=== PATIENT | female | born 1975 | race Hispanic/Latino ===

== ENCOUNTER 2016-08-10 15:04 | Emergency (ER) | payer MEDICAID ==
[2016-08-10 15:05] VITALS: BMI 39.4
[2016-08-10 15:18] VITALS: BP 113/74; PULSE 79; RESP 18; TEMP 97.8; O2SAT 100
--- NOTE | 2016-08-10 16:15 | C.PDOC ---
History Of Present Illness 41 y/o female with Hx of chronic back pain presents to ED with complaints of lower back pain starting after she lifted luggage. Patient reports symptoms similar to previous back pain. Patient denies change in sensation, incontinence , direct trauma, urinary frequency, dysuria or any other complaints at this time. Time Seen by Provider: 08/10/16 15:51 Chief Complaint (Nursing): Back Pain History Per: Patient History/Exam Limitations: no limitations Onset/Duration Of Symptoms: Hrs Current Symptoms Are (Timing): Still Present Quality Of Discomfort: "Pain" Past Medical History Reviewed: Historical Data, Nursing Documentation, Vital Signs Vital Signs: Last Vital Signs Temp 97.8 F 08/10/16 15:14 Pulse 79 08/10/16 15:14 Resp 18 08/10/16 15:14 BP 113/74 08/10/16 15:14 Pulse Ox 100 08/10/16 17:43 - Medical History PMH: Arthritis, Asthma, Back Problems (chronic lower back pain ), COPD, Diabetes , HTN, Hyperthyroidism, Hypothyroidism, Kidney Stones, Migraine, Chronic Kidney Disease, Rheumatoid Arthritis, Seizures, TIA (2011), Chronic Pain (Arthritis) Family History: States: Unknown Family Hx - Social History Hx Tobacco Use: Yes Hx Alcohol Use: No Hx Substance Use: No - Immunization History Hx Tetanus Toxoid Vaccination: No Hx Influenza Vaccination: Yes (12/2014) Hx Pneumococcal Vaccination: Yes (12/2014) Review Of Systems Except As Marked, All Systems Reviewed And Found Negative. Constitutional: Negative for: Fever Genitourinary: Negative for: Dysuria, Frequency Musculoskeletal: Positive for: Back Pain Skin: Negative for: Rash Physical Exam - Physical Exam Appears: Non-toxic, No Acute Distress Skin: Normal Color, Warm Head: Atraumatic, Normacephalic Eye(s): bilateral: Normal Inspection, EOMI Nose: Normal Oral Mucosa: Moist Neck: Normal ROM, Supple Chest: Symmetrical Cardiovascular: Rhythm Regular, No Murmur Respiratory: Normal Breath Sounds, No Rales, No Rhonchi, No Wheezing Gastrointestinal/Abdominal: Soft, No Tenderness, No Guarding, No Rebound Back: No CVA Tenderness, No Vertebral Tenderness, Other (Right paralumbar tenderness) Extremity: Normal ROM Extremity: Bilateral: Atraumatic Neurological/Psych: Oriented x3, Normal Speech, Normal Motor, Normal Sensation ( (-) saddle anesthsia) Gait: Steady ED Course And Treatment O2 Sat by Pulse Oximetry: 100 (RA) Pulse Ox Interpretation: Normal Progress Note: Patient was given Tramadol and re-evaluated. Patient states she cannot see PMD until next week and requests refills on current medication. MEDICAL UNIT SECRETARY evaluated no prescriptions since 03/2016. On reassessment, patient resting comfortably, no longer having back pain, no fever, no bony tenderness, no numbness, no weakness, no abdominal pain. Patient is ambulatory in the emergency department with no discomfort. Patient was instructed to follow up with physician/clinic in 1-2 days for further evaluation or return to ED if symptoms persist or worsen. Reevaluation Time: 05:00 (Patient feeling better) Reassessment Condition: Improved Disposition - Disposition Disposition: HOME/ ROUTINE Disposition Time: 16:18 Condition: STABLE Additional Instructions: Rest and ice the area. Follow up with primary medical doctor in 1-3 days without fail for further evaluation. Take medications as prescribed. Return to the emergency department at any time if symptoms persist or worsen. Prescriptions: Enalapril Maleate [Vasotec] 5 mg PO DAILY #7 tab Gabapentin [Neurontin] 300 mg PO TID #21 cap MetFORMIN [glucOPHAGE] 1,000 mg PO BID #14 tab Metoprolol Succinate [Toprol XL] 25 mg PO BID #14 tab traMADol [Ultram] 50 mg PO Q8 #20 tab Instructions: Chronic Back Pain (ED) - Clinical Impression Clinical Impression: Low back strain - PA / SENIOR PRINCIPAL / Resident Statement MD/DO has reviewed & agrees with the documentation as recorded. - Scribe Statement The provider has reviewed the documentation as recorded by the Miki Dean All medical record entries made by the Miki were at my direction and personally dictated by me. I have reviewed the chart and agree that the record accurately reflects my personal performance of the history, physical exam, medical decision making, and the department course for this patient. I have also personally directed, reviewed, and agree with the discharge instructions and disposition.
== END 2016-08-10 16:44 | disposition home or self-care (01) ==
LOC: C.ER 15:04
DX: S39.012A Strain of muscle, fascia and tendon of lower back, initial encounter (principal); X50.0XXA Overexertion from strenuous movement or load, initial encounter; Y93.89 Activity, other specified; Y92.89 Other specified places as the place of occurrence of the external cause

== ENCOUNTER 2016-08-18 06:37 | Emergency (ER) | payer MEDICAID ==
[2016-08-18 06:38] VITALS: BMI 39.4
--- NOTE | 2016-08-18 07:22 | C.PDOC ---
History Of Present Illness 41F c/o pain in lower front tooth since it "broke off" yesterday. she also c/o pain over her whole body which she attributes to "arthritis flare" which she says she gets on a monthly basis for the last 5 years. she said she has taken only motrin at home for pain. Time Seen by Provider: 08/18/16 07:13 Chief Complaint (Nursing): Pain, Chronic Past Medical History Vital Signs: Last Vital Signs Temp 97.8 F 08/18/16 06:52 Pulse 78 08/18/16 06:52 Resp 20 08/18/16 06:52 BP 113/83 08/18/16 06:52 Pulse Ox 100 08/18/16 07:22 - Medical History PMH: Arthritis, Asthma, Back Problems (chronic lower back pain ), COPD, Diabetes , HTN, Hyperthyroidism, Hypothyroidism, Kidney Stones, Migraine, Chronic Kidney Disease, Rheumatoid Arthritis, Seizures, TIA (2010), Chronic Pain (Arthritis) Family History: States: Other Other Family History: nc - Social History Hx Tobacco Use: Yes Hx Alcohol Use: No Hx Substance Use: No - Immunization History Hx Tetanus Toxoid Vaccination: No Hx Influenza Vaccination: Yes (12/2014) Hx Pneumococcal Vaccination: Yes (12/2014) Review Of Systems Constitutional: Negative for: Fever, Chills Cardiovascular: Negative for: Chest Pain Respiratory: Negative for: Cough, Shortness of Breath Gastrointestinal: Negative for: Vomiting, Abdominal Pain Neurological: Negative for: Weakness, Numbness, Headache Physical Exam - Physical Exam Appears: Well, Non-toxic, No Acute Distress Skin: Warm, Dry Head: Atraumatic Eye(s): bilateral: PERRL Oral Mucosa: Moist Tongue: No Swelling, No Lesions Lips: No Swelling, No Lesions Teeth: Caries, Other (poor dentition) Gingiva: No Erythema, No Ulceration, No Swelling, No Bleeding, No Abscess Throat: No Erythema, No Exudate, No Drooling, Other (no trismus, normal phonation, handling secretions well, uvula midline, no subment/subling induration) Neck: Normal ROM, Supple Cardiovascular: Rhythm Regular Respiratory: No Decreased Breath Sounds, No Accessory Muscle Use Neurological/Psych: Oriented x3, Normal Cranial Nerves, Normal Motor, Normal Sensation, Other (no focal deficits) ED Course And Treatment O2 Sat by Pulse Oximetry: 100 Disposition - Disposition Referrals: [facility] [Outside] Disposition: HOME/ ROUTINE Disposition Time: 07:44 Condition: STABLE Additional Instructions: Please follow up with a primary doctor and also with a dentist. Return to the ER for any worsening symptoms, fever, swelling in the mouth, difficulty opening your mouth or swallowing, or for any other concerns. Prescriptions: Clindamycin [Cleocin] 150 mg PO QID #40 cap Naproxen [Naprosyn] 500 mg PO Q12H PRN #10 tablet PRN Reason: Pain, Moderate (4-7) Instructions: Toothache (ED) Forms: General Discharge Instructions - Clinical Impression Clinical Impression: Toothache, Chronic pain
[2016-08-18 08:23] VITALS: BP 108/69; PULSE 69; RESP 17; TEMP 97.9; O2SAT 98
== END 2016-08-18 08:23 | disposition home or self-care (01) ==
LOC: C.ER 06:37
DX: K08.89 Other specified disorders of teeth and supporting structures (principal); G89.29 Other chronic pain
CPT/HCPCS: 96372; 99285; J1885

== ENCOUNTER 2016-08-23 20:39 | Emergency (ER) | payer MEDICAID ==
[2016-08-23 20:39] VITALS: BMI 39.4
[2016-08-23 20:52] VITALS: RESP 18; TEMP 98.1; O2SAT 98
--- NOTE | 2016-08-23 22:09 | C.PDOC ---
History Of Present Illness 41 y/o female patient presents to the ED for evaluation of bed bug bites which she sustained to her upper and lower back last night. Patient states she stayed at a hotel where she visualized bed bugs crawling on the mattress. She notes generalized itching and denies fever, chills, shortness of breath, difficultly breathing, lip/tongue swelling. Time Seen by Provider: 08/23/16 21:05 Chief Complaint (Nursing): Abnormal Skin Integrity History Per: Patient History/Exam Limitations: no limitations Onset/Duration Of Symptoms: Hrs Current Symptoms Are (Timing): Still Present Location Of Injury: Posterior: Back (upper and lower ) Quality Of Symptoms: Itching Additional History Per: Patient Past Medical History Reviewed: Historical Data, Nursing Documentation, Vital Signs Vital Signs: Last Vital Signs Temp 98.1 F 08/23/16 20:48 Pulse 82 08/23/16 22:17 Resp 18 08/23/16 22:17 BP 122/82 08/23/16 22:17 Pulse Ox 98 08/23/16 23:55 - Medical History PMH: Arthritis, Asthma, Back Problems (chronic lower back pain ), COPD, Diabetes , HTN, Hyperthyroidism, Hypothyroidism, Kidney Stones, Migraine, Chronic Kidney Disease, Rheumatoid Arthritis, Seizures, TIA (2011), Chronic Pain (Arthritis) Surgical History: No Surg Hx Family History: States: Unknown Family Hx - Social History Hx Tobacco Use: Yes Hx Alcohol Use: No Hx Substance Use: No - Immunization History Hx Tetanus Toxoid Vaccination: No Hx Influenza Vaccination: Yes (12/2014) Hx Pneumococcal Vaccination: Yes (12/2014) Review Of Systems Constitutional: Negative for: Fever, Chills ENT: Negative for: Mouth Swelling Respiratory: Negative for: Cough, Shortness of Breath, Wheezing Skin: Positive for: Other (+bed bug bites to upper and lower back with generalized itching. ) Physical Exam - Physical Exam Appears: Non-toxic, No Acute Distress Skin: Other (+scattered patchy papules to left upper back and lateral aspect of left lower back with diffuse erythema ) Head: Atraumatic Eye(s): bilateral: Normal Inspection Nose: Normal Oral Mucosa: Moist Tongue: Normal Appearing, No Swelling Lips: Normal Appearing, No Swelling Throat: Normal Neck: Supple Chest: Symmetrical, No Deformity Cardiovascular: Rhythm Regular, No Murmur Respiratory: Normal Breath Sounds, No Rales, No Rhonchi, No Wheezing Extremity: Normal ROM Neurological/Psych: Normal Speech, Normal Cognition Gait: Steady ED Course And Treatment O2 Sat by Pulse Oximetry: 98 (on RA) Pulse Ox Interpretation: Normal Progress Note: Patient received Benadryl PO. On reassessment, patient is resting comfortably, showing no signs of distress, and reports an improvement in her symptoms. Patient is stable for discharge and is advised to follow up with her PMD within 1-2 days for further evaluation or return to the ED if symptoms worsen. Reassessment Condition: Improved Disposition Counseled Patient/Family Regarding: Diagnosis, Need For Followup, Rx Given - Disposition Referrals: Alexx Coyle MD [Staff Provider] - Disposition: HOME/ ROUTINE Disposition Time: 22:05 Condition: STABLE Additional Instructions: Please follow up with PMD Use cream as directed Return to ER if worse Prescriptions: Loratadine [Claritin] 10 mg PO DAILY #20 tab Permethrin 5% [Permethrin] 5 % TP ONCE #60 g Instructions: Bed Bugs (ED) - Clinical Impression Clinical Impression: Bed bug bite - PA / FIRE MANAGER / Resident Statement MD/DO has reviewed & agrees with the documentation as recorded. - Scribe Statement The provider has reviewed the documentation as recorded by the Scribe (Sarah Garrett) All medical record entries made by the Scribe were at my direction and personally dictated by me. I have reviewed the chart and agree that the record accurately reflects my personal performance of the history, physical exam, medical decision making, and the department course for this patient. I have also personally directed, reviewed, and agree with the discharge instructions and disposition.
[2016-08-23 22:18] VITALS: BP 122/82; PULSE 82
== END 2016-08-23 22:18 | disposition home or self-care (01) ==
LOC: C.ER 20:39
DX: S30.860A Insect bite (nonvenomous) of lower back and pelvis, initial encounter (principal); S20.469A Insect bite (nonvenomous) of unspecified back wall of thorax, initial encounter; W57.XXXA Bitten or stung by nonvenomous insect and other nonvenomous arthropods, initial encounter; Y92.59 Other trade areas as the place of occurrence of the external cause

== ENCOUNTER 2016-08-25 16:29 | Emergency (ER) | payer MEDICAID ==
[2016-08-25 16:30] VITALS: BMI 39.4
[2016-08-25 16:47] VITALS: BP 114/76; PULSE 97; RESP 18; TEMP 97.9; O2SAT 100
--- NOTE | 2016-08-25 17:20 | C.PDOC ---
History Of Present Illness 41 year old female who presents to the ER with a complaint of a sharp right shoulder pain radiating down to her right arm that is worse with movement. Patient states the symptoms began when she woke up this morning; denies weakness , numbness, or recent injury. Time Seen by Provider: 08/25/16 16:52 Chief Complaint (Nursing): Upper Extremity Problem/Injury History Per: Patient History/Exam Limitations: no limitations Onset/Duration Of Symptoms: Hrs Current Symptoms Are (Timing): Still Present Quality: Sharp Exacerbating Factor(s): Movement Recent travel outside of the [place]: No Past Medical History Reviewed: Historical Data, Nursing Documentation, Vital Signs Vital Signs: Last Vital Signs Temp 97.9 F 08/25/16 16:45 Pulse 97 H 08/25/16 16:45 Resp 18 08/25/16 16:45 BP 114/76 08/25/16 16:45 Pulse Ox 100 08/25/16 21:02 - Medical History PMH: Arthritis, Asthma, Back Problems (chronic lower back pain ), COPD, Diabetes , HTN, Hyperthyroidism, Hypothyroidism, Kidney Stones, Migraine, Chronic Kidney Disease, Rheumatoid Arthritis, Seizures, TIA (2010), Chronic Pain (Arthritis) Surgical History: No Surg Hx Family History: States: Unknown Family Hx - Social History Hx Tobacco Use: Yes Hx Alcohol Use: No Hx Substance Use: No - Immunization History Hx Tetanus Toxoid Vaccination: No Hx Influenza Vaccination: Yes (12/2014) Hx Pneumococcal Vaccination: Yes (12/2014) Review Of Systems Musculoskeletal: Positive for: Shoulder Pain (Right), Arm Pain (Right, radiating from shoulder) Neurological: Negative for: Weakness, Numbness Physical Exam - Physical Exam Appears: Non-toxic Skin: Normal Color, Warm, Dry, No Rash Head: Atraumatic, Normacephalic Eye(s): bilateral: Normal Inspection Oral Mucosa: Moist Throat: No Erythema, No Exudate Neck: Normal ROM, Other ((+) muscle spasm to cervical region) Cardiovascular: Rhythm Regular, No Friction Rub, No Murmur Respiratory: Normal Breath Sounds, No Rales, No Rhonchi, No Wheezing Gastrointestinal/Abdominal: Soft, No Tenderness Back: No CVA Tenderness, No Vertebral Tenderness, Muscle Spasm (To right parathoracic region), No Paraspinal Tenderness Extremity: Normal ROM (x4), No Deformity, No Swelling Pulses: Left Radial: Normal, Right Radial: Normal Neurological/Psych: Oriented x3, Normal Speech, Normal Cognition, Normal Motor Gait: Steady ED Course And Treatment O2 Sat by Pulse Oximetry: 100 (Room air) Pulse Ox Interpretation: Normal Medical Decision Making Medical Decision Making: Decadron, valium, and percocet administered. On reevaluation, patient feels better and is no longer in pain; will discharge home and advised to return to ER if pain returns. Disposition - Disposition Referrals: Alexx Coyle MD [Staff Provider] - Disposition: HOME/ ROUTINE Disposition Time: 17:58 Condition: GOOD Additional Instructions: Follow up with the medical doctor within 1-2 days, Return if worsened. Prescriptions: Diazepam [Valium] 2 mg PO TID #21 tab Ibuprofen [Motrin] 600 mg PO TID #21 tab traMADol/Acetaminophen [Ultracet 325 MG-37.5 MG] 1 tab PO Q8 PRN #15 tab PRN Reason: Pain Instructions: Muscle Spasm (ED) - Clinical Impression Clinical Impression: Muscle strain, Muscle spasm - Scribe Statement The provider has reviewed the documentation as recorded by the Scribkallie Dickson All medical record entries made by the Scribe were at my direction and personally dictated by me. I have reviewed the chart and agree that the record accurately reflects my personal performance of the history, physical exam, medical decision making, and the department course for this patient. I have also personally directed, reviewed, and agree with the discharge instructions and disposition.
[2016-08-25] MEDS ORDERED: Dexamethasone 4 mg/1 ml IM STA (17:24)
[2016-08-25] MEDS ORDERED: Oxycodone/Acetaminophen 5/325 mg Tab PO STA (17:25)
[2016-08-25] MEDS ORDERED: Dexamethasone 4 mg/1 ml ONE (17:31)
[2016-08-25] MEDS ORDERED: Oxycodone/Acetaminophen 5/325 mg Tab ONE (17:31)
== END 2016-08-25 18:10 | disposition home or self-care (01) ==
LOC: C.ER 16:29
DX: S46.911A Strain of unspecified muscle, fascia and tendon at shoulder and upper arm level, right arm, initial encounter (principal); M62.838 Other muscle spasm; X58.XXXA Exposure to other specified factors, initial encounter; Y92.009 Unspecified place in unspecified non-institutional (private) residence as the place of occurrence of the external cause
CPT/HCPCS: 96372; 99284; J1100

== ENCOUNTER 2016-09-02 13:49 | Emergency (ER) | payer MEDICAID ==
[2016-09-02 14:28] VITALS: BMI 38.8
[2016-09-02 14:32] VITALS: RESP 18; O2SAT 97
--- NOTE | 2016-09-02 15:40 | C.PDOC ---
History Of Present Illness 41 y/o female presents to the ED with complaints of right trapezius pain radiating to right anterior chest wall x 1 week. Pain is worse with movement. Pt was seen in ED 08/25 for same, finished taking pain medications and still has pain. Denies fever, chills, SOB, cough or any other complaints. Time Seen by Provider: 09/02/16 14:27 Chief Complaint (Nursing): Chest Pain History Per: Patient History/Exam Limitations: no limitations Onset/Duration Of Symptoms: Days Current Symptoms Are (Timing): Still Present Severity: Moderate Quality: "Pain" Modifying Factors: None Recent travel outside of the [place]: No Past Medical History Reviewed: Historical Data, Nursing Documentation, Vital Signs Vital Signs: Last Vital Signs Temp 97.6 F 09/02/16 17:40 Pulse 78 09/02/16 17:40 Resp 18 09/02/16 17:40 BP 110/74 09/02/16 17:40 Pulse Ox 97 09/04/16 07:24 - Medical History PMH: Arthritis, Asthma, Back Problems (chronic lower back pain ), COPD, Diabetes , HTN, Hypercholesterolemia, Hyperthyroidism, Hypothyroidism, Kidney Stones, Migraine, Chronic Kidney Disease, Rheumatoid Arthritis, Seizures, TIA (2010), Chronic Pain (Arthritis) Family History: States: Unknown Family Hx - Social History Hx Tobacco Use: Yes Hx Alcohol Use: No Hx Substance Use: No - Immunization History Hx Tetanus Toxoid Vaccination: No Hx Influenza Vaccination: Yes (12/2014) Hx Pneumococcal Vaccination: Yes (12/2014) Review Of Systems Constitutional: Negative for: Fever, Chills Cardiovascular: Negative for: Chest Pain Respiratory: Negative for: Cough, Shortness of Breath Musculoskeletal: Positive for: Other (right trapezius pain radiating to right anterior chest wall) Physical Exam - Physical Exam Appears: Non-toxic, No Acute Distress Skin: Warm, Dry, No Rash Head: Atraumatic, Normacephalic Neck: Normal, Normal ROM, No Midline Cervical Tenderness, No Paracervical Tenderness, Supple Chest: Symmetrical, Tenderness (mild right chest wall tenderness, +right trapezius tenderness) Cardiovascular: Rhythm Regular, No Murmur Respiratory: Normal Breath Sounds, No Rales, No Rhonchi, No Wheezing Back: Normal Inspection Extremity: Normal ROM, No Tenderness (no right arm tenderness), Capillary Refill (<2 seconds), No Deformity, No Swelling Pulses: Right Radial: Normal Neurological/Psych: Oriented x3, Normal Speech, Normal Cognition, Normal Motor, Normal Sensation ED Course And Treatment O2 Sat by Pulse Oximetry: 97 (room air) Pulse Ox Interpretation: Normal Medical Decision Making Medical Decision Making: pt feeling better after tylenol and flexeril. cxr neg. pt requesting refills on regular medications. will give 2 weeks. pt advised to go to medical clinic to make soonest appt. Noted that pt received refills of medications on ed visit 08/10. pt sts she ran out of meds and unable to see her pMD Dr Coyle until Sep. pt advised to got to clinic tomorrow. Disposition Counseled Patient/Family Regarding: Studies Performed, Diagnosis, Need For Followup, Rx Given - Disposition Referrals: [facility] [Outside] Disposition: HOME/ ROUTINE Disposition Time: 17:23 Condition: IMPROVED Additional Instructions: FOllow up in medical clinic as soon as possible for check u and medication refills. Take muscle relaxant as prescribed. Makes you sleepy. Return to ER for any worse symptoms. Prescriptions: Cyclobenzaprine [Cyclobenzaprine HCl] 10 mg PO Q8 #9 tab Gabapentin 300 mg PO TID #42 capsule Levothyroxine [Synthroid] 25 mcg PO DAILY #14 tab Levothyroxine [Synthroid] 200 mcg PO DAILY #14 tab MetFORMIN [glucoPHAGE] 1,000 mg PO BID #28 tab Instructions: Muscle Spasm (ED) Forms: General Discharge Instructions - Clinical Impression Clinical Impression: Muscle spasm of right shoulder, Encounter for medication refill - PA / SHIFT SUPERVISOR MELTING / Resident Statement MD/DO has reviewed & agrees with the documentation as recorded. - Scribe Statement The provider has reviewed the documentation as recorded by the Miki Sanchez All medical record entries made by the Miki were at my direction and personally dictated by me. I have reviewed the chart and agree that the record accurately reflects my personal performance of the history, physical exam, medical decision making, and the department course for this patient. I have also personally directed, reviewed, and agree with the discharge instructions and disposition.
--- NOTE | 2016-09-02 16:28 | RAD ---
HISTORY: right cp COMPARISON: 10/07/2014 comparison chest radiograph TECHNIQUE: Chest PA and lateral FINDINGS: LUNGS: No acute infiltrate or pleural effusion is appreciated grossly. Linear atelectasis or fibrosis seen in the interval at the inferior left lung zone laterally. PLEURA: No significant pleural effusion identified. No pneumothorax apparent. CARDIOVASCULAR: Normal. OSSEOUS STRUCTURES: No significant abnormalities. VISUALIZED UPPER ABDOMEN: Normal. OTHER FINDINGS: None. IMPRESSION: Limited linear atelectasis or fibrosis in the left base laterally. No acute infiltrate or pleural effusion. No cardiomegaly. .
[2016-09-02 17:41] VITALS: BP 110/74; PULSE 78; TEMP 97.6
--- NOTE | 2016-09-04 14:23 | CARD ---
APPROVED REPORT EKG Measurement Heart [id number] <Conclusion> Normal sinus rhythm Normal ECG
== END 2016-09-02 18:01 | disposition home or self-care (01) ==
LOC: C.ER 13:49
DX: M62.838 Other muscle spasm (principal); Z76.0 Encounter for issue of repeat prescription

== ENCOUNTER 2016-11-05 15:14 | Emergency (ER) | payer MEDICAID ==
[2016-11-05 15:15] VITALS: BMI 38.8
[2016-11-05 15:28] VITALS: RESP 18; O2SAT 98
[2016-11-05] MEDS ORDERED: Sodium Chloride 0.9% 1,000 ML IV ONE (16:04)
[2016-11-05] MEDS ORDERED: Sodium Chloride 0.9% 1,000 ML ONE (16:22)
[2016-11-05 16:58] LABS: RBC URINE 6 /hpf (0-3); URINE BACTERIA MOD (<OCC); URINE BILIRUBIN NEGATIVE (NEGATIVE); URINE COLOR Yellow (YELLOW); URINE GLUCOSE (UA) NORMAL (Normal); URINE KETONE NEGATIVE (NEGATIVE); URINE LEUKOCYTE ESTERASE 2+ Leu/uL (Negative); URINE PROTEIN NEGATIVE (NEGATIVE); URINE UROBILINOGEN NORMAL mg/dL (0.2-1.0); WBC URINE 25 /hpf (0-5)
[2016-11-05 17:00] LABS: URINE BLOOD 1+ (NEGATIVE)
[2016-11-05 17:01] LABS: CHLORIDE 105 mmol/L (98-107); POTASSIUM 3.8 mmol/L (3.6-5.2); SODIUM 140 mmol/L (132-148)
[2016-11-05 17:03] LABS: ALB/GLOB RATIO 0.9 (1.0-2.1); ALKALINE PHOSPHATASE 47 U/L (38-126); AST/SGOT 64 U/L (14-36); BILIRUBIN,TOTAL 0.6 mg/dL (0.2-1.3); BLOOD UREA NITROGEN 13 mg/dL (7-17); CARBON DIOXIDE 24 mmol/L (22-30); GFR AFRICAN-AMERICAN > 60; TOTAL PROTEIN 7.6 g/dL (6.3-8.3)
[2016-11-05 17:04] LABS: ALT/SGPT 98 U/L (9-52); GLUCOSE,RANDOM 86 mg/dL (65-105); MAGNESIUM 1.7 mg/dL (1.6-2.3)
[2016-11-05 17:17] LABS: BASO # 0.1 K/uL (0.0-0.2); BASO % 0.7 % (0.0-2.0); EOS # 0.2 K/uL (0.0-0.7); LYMPH # 2.9 K/uL (1.0-4.3); LYMPH % 28.4 % (20.0-40.0); MEAN CELL VOLUME 89.3 fL (81.0-99.0); MEAN CORPUSCULAR HEMOGLOBIN 30.9 pg (27.0-31.0); MEAN CORPUSCULAR HGB CONC 34.6 g/dL (33.0-37.0); MEAN PLATELET VOLUME 8.5 fL (7.2-11.7); MONO # 0.7 K/uL (0.0-0.8); MONO % 6.9 % (0.0-10.0); RED CELL DISTRIBUTION WIDTH 14.9 % (11.5-14.5); WHITE BLOOD COUNT 10.1 K/uL (4.8-10.8)
--- NOTE | 2016-11-05 17:40 | RAD ---
HISTORY: Cough COMPARISON: No prior. TECHNIQUE: Chest PA and lateral FINDINGS: LUNGS: Mild venous congestion. PLEURA: No significant pleural effusion identified. No pneumothorax apparent. CARDIOVASCULAR: Normal. OSSEOUS STRUCTURES: No significant abnormalities. VISUALIZED UPPER ABDOMEN: Normal. OTHER FINDINGS: None. IMPRESSION: Mild venous congestion.
--- NOTE | 2016-11-05 17:51 | C.PDOC ---
Time Seen by Provider: 11/05/16 15:37 Chief Complaint (Nursing): Flu-like Symptoms History Per: Patient Onset/Duration Of Symptoms: Days (1) Current Symptoms Are (Timing): Still Present Associated Symptoms: Sore Throat, Cough, Myalgias, Nausea, Vomiting, Diarrhea Ear Symptoms: Left: Ear Pain Severity: Moderate Recent travel outside of the [place]: No Additional History Per: Prior Records Past Medical History Reviewed: Historical Data, Nursing Documentation, Vital Signs Vital Signs: Last Vital Signs Temp 97.0 F L 11/05/16 15:23 Pulse 88 11/05/16 15:23 Resp 18 11/05/16 15:23 BP 131/90 11/05/16 15:23 Pulse Ox 98 11/05/16 17:52 - Medical History PMH: Arthritis (Rheumatoid), Asthma, Back Problems (chronic lower back pain ), COPD, Diabetes, HTN, Hypercholesterolemia, Hyperthyroidism, Hypothyroidism, Kidney Stones, Migraine, Chronic Kidney Disease, Rheumatoid Arthritis, Seizures , TIA (2010), Chronic Pain (Arthritis) Family History: States: Unknown Family Hx - Social History Hx Tobacco Use: Yes Hx Alcohol Use: No Hx Substance Use: No - Immunization History Hx Tetanus Toxoid Vaccination: No Hx Influenza Vaccination: Yes Hx Pneumococcal Vaccination: Yes (12/2014) Review Of Systems Except As Marked, All Systems Reviewed And Found Negative. Constitutional: Positive for: Fever (subjective), Malaise ENT: Positive for: Ear Pain, Other (Hoarse voice). Negative for: Ear Discharge Cardiovascular: Negative for: Chest Pain Respiratory: Positive for: Cough. Negative for: Shortness of Breath, Hemoptysis , Sputum Gastrointestinal: Positive for: Nausea, Vomiting, Diarrhea. Negative for: Abdominal Pain Genitourinary: Positive for: Dysuria Musculoskeletal: Positive for: Other (Arthralgias). Negative for: Neck Pain Skin: Negative for: Rash Neurological: Negative for: Weakness, Numbness, Seizures Physical Exam - Physical Exam Appears: Non-toxic, No Acute Distress Skin: Normal Color, Warm, Dry, No Rash Head: Atraumatic, Normacephalic Eye(s): bilateral: Normal Inspection, PERRL, EOMI Oral Mucosa: Moist, No Drooling, No Trismus Throat: Erythema, No Exudate, No Drooling, No Mass Neck: Normal ROM, Supple Cardiovascular: Rhythm Regular Respiratory: Normal Breath Sounds, No Accessory Muscle Use Gastrointestinal/Abdominal: Soft, No Tenderness, No Distention Back: No CVA Tenderness Extremity: Normal ROM Neurological/Psych: Oriented x3, Normal Motor, Normal Sensation ED Course And Treatment - Laboratory Results Result Diagrams: 11/05/16 16:49 11/05/16 16:49 Interpretation Of Abnormal: Possible UTI Urine POC: Negative O2 Sat by Pulse Oximetry: 98 Pulse Ox Interpretation: Normal - Radiology CXR: Viewed By Me, Read By Radiologist CXR Interpretation: Yes: No Acute Disease Progress - Interventions Interventions:: Observation, Intravenous fluid - Medications Administered Intravenous: Antiemetic, H-2 izaiah, NSAID - Data Reviewed Data Reviewed: Lab, Diagnostic imaging, Old records - Patient Status Patient status: Mostly improved - Continuity of Care Discussed patient case with:: Patient, ED Nurse - Patient Plan Patient Plan: Discharge, F/U with PCP Disposition Counseled Patient/Family Regarding: Studies Performed, Diagnosis, Need For Followup, Rx Given - Disposition Disposition: HOME/ ROUTINE Disposition Time: 17:54 Condition: IMPROVED Additional Instructions: Drink plenty of fluids. Follow up with a primary doctor within 1 week. Return to the ER if you develop high fever, lethargy, shortness of breath, not tolerating fluids, worsening of symptoms or if you have any other concerns. Prescriptions: Sulfamethoxazole/Trimethoprim [Bactrim DS 800 mg-160 mg] 1 tab PO BID #10 tab traMADol/Acetaminophen [Ultracet 325 MG-37.5 MG] 1 tab PO Q4 PRN #30 tab PRN Reason: Pain Instructions: Viral Syndrome (ED), Urinary Tract Infection in Women (ED) Forms: [employer] (Bhutanese) - Clinical Impression Clinical Impression: Influenza-like illness, UTI (urinary tract infection)
[2016-11-05 18:33] VITALS: BP 129/94; PULSE 78; TEMP 97.1
== END 2016-11-05 18:33 | disposition home or self-care (01) ==
LOC: C.ER 15:14
DX: J11.1 Influenza due to unidentified influenza virus with other respiratory manifestations (principal); N39.0 Urinary tract infection, site not specified
CPT/HCPCS: 71020; 80053; 80324; 80345; 80346; 80349; 80353; 80358; 80361; 81001; 83735; 83992; 84703; 85025; 87804; 96361; 96374; 96375; 99285; J1885; J2405; J7040

== ENCOUNTER 2017-10-01 21:18 | Emergency (ER) | payer MEDICAID ==
[2017-10-01 21:19] VITALS: BMI 38.8
--- NOTE | 2017-10-01 22:58 | C.PDOC ---
History Of Present Illness 42 year old female with PMHx of chronic back pain and arthritis presents to the ED c/o sciatica exacerbation. Patient states she took Tramadol and Advil today with minimal relief to her symptoms. Patient denies new injury, fall, trauma, weakness, numbness, saddles anesthesia, bowel incontinence. Time Seen by Provider: 10/01/17 21:52 Chief Complaint (Nursing): Lower Extremity Problem/Injury History Per: Patient History/Exam Limitations: no limitations Onset/Duration Of Symptoms: Days Current Symptoms Are (Timing): Still Present Recent travel outside of the [place]: No Additional History Per: Patient Past Medical History Reviewed: Historical Data, Nursing Documentation, Vital Signs Vital Signs: Last Vital Signs Temp 98.2 F 10/01/17 23:34 Pulse 89 10/01/17 23:34 Resp 185 H 10/01/17 23:34 BP 128/78 10/01/17 23:34 Pulse Ox 95 10/02/17 02:20 - Medical History PMH: Arthritis (Rheumatoid), Asthma, Back Problems (chronic lower back pain ), COPD, Diabetes, HTN, Hypercholesterolemia, Hyperthyroidism, Hypothyroidism, Kidney Stones, Migraine, Chronic Kidney Disease, Rheumatoid Arthritis, Seizures , TIA (2011), Chronic Pain (Arthritis) Surgical History: No Surg Hx Family History: States: Unknown Family Hx - Social History Hx Tobacco Use: Yes Hx Alcohol Use: No Hx Substance Use: No - Immunization History Hx Tetanus Toxoid Vaccination: No Hx Influenza Vaccination: Yes Hx Pneumococcal Vaccination: Yes (12/2014) Review Of Systems Constitutional: Negative for: Fever, Chills Eyes: Negative for: Vision Change Cardiovascular: Negative for: Chest Pain, Palpitations Respiratory: Negative for: Cough, Shortness of Breath Gastrointestinal: Negative for: Nausea, Vomiting, Abdominal Pain Genitourinary: Negative for: Incontinence Musculoskeletal: Positive for: Back Pain Neurological: Negative for: Weakness, Numbness Physical Exam - Physical Exam Appears: Non-toxic, No Acute Distress, Other (morbidly obese) Skin: Normal Color, Warm, Dry Head: Atraumatic, Normacephalic Eye(s): bilateral: Normal Inspection Neck: Normal ROM, Supple Chest: Symmetrical Cardiovascular: Rhythm Regular Respiratory: Normal Breath Sounds, No Rales, No Rhonchi, No Wheezing Gastrointestinal/Abdominal: Soft, No Tenderness, No Guarding, No Rebound Back: Paraspinal Tenderness (paralumbar), Straight Leg Raising (+ at 40 degrees) Extremity: Normal ROM, No Tenderness, No Swelling Neurological/Psych: Oriented x3, Normal Speech, Normal Motor, Normal Sensation Gait: Steady ED Course And Treatment O2 Sat by Pulse Oximetry: 95 (On RA) Pulse Ox Interpretation: Normal Progress Note: Plan: - Toradol 30 mg IM. - Valium 5 mg PO. On reassessment, patient is resting comfortably, with improvement of back pain. Patient remains afebrile, with no bony tenderness, extremity numbness or weakness, or abdominal pain. Patient is ambulatory in the emergency department with no signs of discomfort. Patient was advised to follow up with physician/clinic in 1-2 days. Disposition Counseled Patient/Family Regarding: Diagnosis, Need For Followup - Disposition Referrals: FAMILY PROVIDER,NO [Primary Care Provider] - Disposition: HOME/ ROUTINE Disposition Time: 22:56 Condition: STABLE Additional Instructions: Please follow up with PMD Take meds as directed Return to ER if worse Prescriptions: Cyclobenzaprine [Cyclobenzaprine HCl] 10 mg PO HS #10 tab traMADol [Ultram] 50 mg PO TID #14 tab Instructions: Sciatica (DC) Forms: [employer] (Canadian) - Clinical Impression Clinical Impression: Sciatica - PA / [employer] / Resident Statement MD/DO has reviewed & agrees with the documentation as recorded. - Scribe Statement The provider has reviewed the documentation as recorded by the Scribe Herb Roberts All medical record entries made by the Scribe were at my direction and personally dictated by me. I have reviewed the chart and agree that the record accurately reflects my personal performance of the history, physical exam, medical decision making, and the department course for this patient. I have also personally directed, reviewed, and agree with the discharge instructions and disposition.
[2017-10-01 23:34] VITALS: BP 128/78; PULSE 89; RESP 185; TEMP 98.2
[2017-10-02 02:18] VITALS: O2SAT 95
== END 2017-10-01 23:35 | disposition home or self-care (01) ==
LOC: C.ER 21:18
DX: M54.30 Sciatica, unspecified side (principal)
CPT/HCPCS: 96372; 99283; J1885

== ENCOUNTER 2017-10-11 22:33 | Emergency (ER) | payer MEDICAID ==
[2017-10-11 22:34] VITALS: BMI 38.8
[2017-10-11 22:58] VITALS: BP 112/78; PULSE 87; RESP 22; TEMP 98.3; O2SAT 97
--- NOTE | 2017-10-11 23:59 | C.PDOC ---
History Of Present Illness 42 y/o F c PMHx RA and sciatica p/w back pain radiating down R leg x 1 day. States pain is same as previous sciatica. Denies urinary or bowel changes, numbness, or motor weakness. Patient denies chest pain or dyspnea. Also notes bilateral leg swelling and pain which she states is typical of her RA. She states she has yet to find a PMD since her return from [place] so she is requesting a refill of her Plavix. Time Seen by Provider: 10/11/17 23:37 Chief Complaint (Nursing): Lower Extremity Problem/Injury Past Medical History Vital Signs: Last Vital Signs Temp 98.3 F 10/11/17 22:53 Pulse 87 10/11/17 22:53 Resp 22 10/11/17 22:53 BP 112/78 10/11/17 22:53 Pulse Ox 97 10/11/17 23:59 - Medical History PMH: Arthritis (Rheumatoid), Asthma, Back Problems (chronic lower back pain ), COPD, Diabetes, HTN, Hypercholesterolemia, Hyperthyroidism, Hypothyroidism, Kidney Stones, Migraine, Chronic Kidney Disease, Rheumatoid Arthritis, Seizures , TIA (2011), Chronic Pain (Arthritis) Family History: States: Unknown Family Hx - Social History Hx Tobacco Use: Yes Hx Alcohol Use: No Hx Substance Use: No - Immunization History Hx Tetanus Toxoid Vaccination: No Hx Influenza Vaccination: Yes Hx Pneumococcal Vaccination: Yes (12/2014) Review Of Systems Except As Marked, All Systems Reviewed And Found Negative. Constitutional: Negative for: Fever Cardiovascular: Negative for: Chest Pain Respiratory: Negative for: Shortness of Breath Physical Exam - Physical Exam Appears: No Acute Distress Skin: Normal Color Head: Atraumatic, Normacephalic Eye(s): bilateral: EOMI Oral Mucosa: Moist Neck: Supple Chest: No Tenderness Cardiovascular: Rhythm Regular Respiratory: Normal Breath Sounds Gastrointestinal/Abdominal: Soft, No Tenderness Back: No CVA Tenderness Extremity: No Tenderness, Swelling (pitting bilaterally) Pulses: Left Radial: Normal, Right Radial: Normal Neurological/Psych: Normal Speech, Normal Cognition ED Course And Treatment O2 Sat by Pulse Oximetry: 97 Medical Decision Making Medical Decision Making: Toradol, Flexeril for pain. Continue Flexeril at home. Informed must follow up with primary care for refills and stronger pain medication. Disposition - Disposition Referrals: [facility] [Outside] Disposition: HOME/ ROUTINE Disposition Time: 23:57 Condition: STABLE Prescriptions: Clopidogrel [Plavix] 75 mg PO DAILY #7 tab Cyclobenzaprine [Cyclobenzaprine HCl] 1 tab PO Q8H #12 tab Instructions: Sciatica Forms: [facility] [employer] (Bruneian) - Clinical Impression Clinical Impression: Sciatica
== END 2017-10-12 00:15 | disposition home or self-care (01) ==
LOC: C.ER 22:33
DX: M54.30 Sciatica, unspecified side (principal)
CPT/HCPCS: 96372; 99283; J1885

== ENCOUNTER 2017-11-06 17:40 | Emergency (ER) | payer MEDICAID ==
[2017-11-06 17:41] VITALS: BMI 38.8
[2017-11-06 18:28] VITALS: TEMP 98.3; O2SAT 95
--- NOTE | 2017-11-06 18:38 | C.PDOC ---
History Of Present Illness 42 year old female with PMHx of CAD, RA, and recent IL (3 months ago) on Plavix, presents to the ED complaining of pain to the right side of head and left flank status post fall. Patient reports she slipped in bathtub last night and hit her right side of head and twisted left flank. She states she took Motrin last night and Tylenol today with no relief. She denies LOC or any other injuries. She also complains of cold symptoms for the last 4 days. She denies any fever. no chest pain and no sob. Time Seen by Provider: 11/06/17 17:55 Chief Complaint (Nursing): Back Pain History Per: Patient History/Exam Limitations: no limitations Onset/Duration Of Symptoms: Hrs Current Symptoms Are (Timing): Still Present Past Medical History Reviewed: Historical Data, Nursing Documentation, Vital Signs Vital Signs: Last Vital Signs Temp 98.3 F 11/06/17 17:47 Pulse 98 H 11/06/17 19:55 Resp 18 11/06/17 19:55 BP 128/76 11/06/17 19:55 Pulse Ox 95 11/06/17 19:56 - Medical History PMH: Arthritis (Rheumatoid), Asthma, Back Problems (chronic lower back pain ), COPD, Diabetes, HTN, Hypercholesterolemia, Hyperthyroidism, Hypothyroidism, Kidney Stones, Migraine, Chronic Kidney Disease, Rheumatoid Arthritis, Seizures, TIA (2011), Chronic Pain (Arthritis) Other Surgeries: Hx of surgeries Family History: States: No Known Family Hx - Social History Hx Tobacco Use: Yes Hx Alcohol Use: No Hx Substance Use: No - Immunization History Hx Tetanus Toxoid Vaccination: No Hx Influenza Vaccination: No Hx Pneumococcal Vaccination: Yes (12/2014) Review Of Systems Constitutional: Negative for: Fever ENT: Positive for: Nose Congestion Musculoskeletal: Positive for: Other (left flank pain ) Neurological: Positive for: Headache (right sided) Physical Exam - Physical Exam Appears: Non-toxic, Other (morbidly obese) Skin: Warm, Dry Head: Atraumatic, Normacephalic, Other (no facial trauma noted ) Eye(s): bilateral: Normal Inspection, PERRL, EOMI Ear(s): Bilateral: Normal Nose: Normal Oral Mucosa: Moist Throat: Normal Neck: Normal ROM, No Midline Cervical Tenderness, No Paracervical Tenderness, Supple Chest: Symmetrical Cardiovascular: Rhythm Regular Respiratory: Normal Breath Sounds, No Rales, No Rhonchi, No Wheezing Gastrointestinal/Abdominal: Tenderness (left flank tenderness, (-) ecchymosis (- ) bruising ) Extremity: Normal ROM Extremity: Bilateral: Atraumatic Neurological/Psych: Oriented x3, Normal Speech, Normal Cognition, Normal Cranial Nerves, Normal Motor, Normal Sensation, Normal Reflexes Gait: Steady ED Course And Treatment O2 Sat by Pulse Oximetry: 95 (RA) Pulse Ox Interpretation: Normal - CT Scan/US CT HEAD Other Rad Studies (CT/US): Read By Radiologist, Radiology Report Reviewed CT/US Interpretation: EXAM: CT Head Without Intravenous Contrast. CLINICAL HISTORY: 42 years old, female; Pain; Headache and other: Fell; Additional info: Fell, hit left head, on plavix. TECHNIQUE: Axial computed tomography images of the head/brain without intravenous contrast. All CT scans at. this facility use at least one of these dose optimization techniques: automated exposure control; mA. and/or kV adjustment per patient size (includes targeted exams where dose is matched to clinical. indication); or iterative reconstruction. Sagittal reformatted images were created and reviewed. COMPARISON: No relevant prior studies available. FINDINGS: Brain: The brain with normal bernabe-white matter differentiation, without acute intracranial hemorrhage,. edema or mass effect. Midline shift: No midline shift is present. Ventricles: Unremarkable. No ventriculomegaly. Bones/joints: No calvarial fractures are visualized. Soft tissues: Soft tissue contusion of the forehead, right infraorbital region. Sinuses: Air-fluid level within right maxillary sinus and to a lesser extent sphenoid sinus. Mastoid air cells: Unremarkable as visualized. No mastoid effusion. Orbits: The orbits are normal. There is no evidence of retrobulbar hemorrhage. IMPRESSION: No significant injury noted to the patient's head. No acute intracranial findings are seen. Multifocal soft tissue swelling con sistent with posttraumatic contusion Medical Decision Making Medical Decision Making: Orders: - CT Head - Flexeril 10mg PO - UA - Lidocaine TD [address] pt with neg head [address]. pt found to have uti, reports she has had urinary symptoms for some time. pt ambulates with no difficulty. will d/c with muscle relaxant, tylenol and macrobid, requesting plavix refill; will give one week. pt understands she needs to f/u pmd for refills within week Disposition Counseled Patient/Family Regarding: Studies Performed, Diagnosis, Need For Followup, Rx Given - Disposition Referrals: [facility] [Outside] Disposition: HOME/ ROUTINE Disposition Time: 19:45 Condition: GOOD Additional Instructions: Please take Tylenol and Muscle relaxant for back pain; Take antibiotic for urine infection until completed. Follow up in medical clinic or with your doctor in the week for further evaluation. Return to ER for severe headache, vomiting, nausea, fever, or any other complaints. Prescriptions: Acetaminophen [Tylenol 325mg tab] 650 mg PO Q6 #30 tab Clopidogrel [Plavix] 75 mg PO DAILY #10 tab Cyclobenzaprine [Cyclobenzaprine HCl] 10 mg PO Q8 #9 tab Nitrofurantoin Monohyd/M-Cryst [Nitrofurantoin [place]-Mcr 100 mg] 100 mg PO BID #14 capsule Instructions: Urinary Tract Infection, Adult (DC), Closed Head Injury (DC) Forms: [facility] (Nepalese), General Discharge Instructions - Clinical Impression Clinical Impression: Closed head injury, Fall in bathtub, UTI (urinary tract infection) - PA / RESIDENTIAL NURSE / Resident Statement MD/DO has reviewed & agrees with the documentation as recorded. - Scribe Statement The provider has reviewed the documentation as recorded by the Scribe Allie Lewis All medical record entries made by the Miki were at my direction and personally dictated by me. I have reviewed the chart and agree that the record accurately reflects my personal performance of the history, physical exam, medical decision making, and the department course for this patient. I have also personally directed, reviewed, and agree with the discharge instructions and disposition.
[2017-11-06 18:47] LABS: SQUAMOUS EPITHIAL 28 /hpf (0-5); URINE BACTERIA MANY (<OCC); URINE BILIRUBIN NEGATIVE (NEGATIVE); URINE BLOOD 1+ (NEGATIVE); URINE CLARITY Hazy (Clear); URINE COLOR Yellow (YELLOW); URINE GLUCOSE (UA) NORMAL (Normal); URINE LEUKOCYTE ESTERASE NEG Leu/uL (Negative); URINE PROTEIN NEGATIVE (NEGATIVE)
[2017-11-06 21:30] VITALS: BP 128/76; PULSE 98; RESP 18
--- NOTE | 2017-11-06 21:49 | CT ---
Date of service: 11/06/2017 PROCEDURE: CT HEAD WITHOUT CONTRAST. HISTORY: fell, hit left head, on plavix COMPARISON: None available. TECHNIQUE: Axial computed tomography images were obtained through the head/brain without intravenous contrast. Radiation dose: Total exam DLP = 851.47 mGy-cm. This CT exam was performed using one or more of the following dose reduction techniques: Automated exposure control, adjustment of the mA and/or kV according to patient size, and/or use of iterative reconstruction technique. FINDINGS: HEMORRHAGE: No intracranial hemorrhage. BRAIN: Joseph-white matter differentiation is preserved. There is no mass, mass effect or abnormal extra-axial fluid collection. There is no territorial infarction. The midline sagittal structures are normal. VENTRICLES: The ventricles are normal in size, shape and configuration. CALVARIUM: No calvarial fracture. Mild inferior and mid frontal soft tissue hematoma. PARANASAL SINUSES: There is fluid in the right maxillary sinus and mild mucosal thickening in the sphenoid chamber. MASTOID AIR CELLS: Unremarkable as visualized. No inflammatory changes. OTHER FINDINGS: None. IMPRESSION: No acute intracranial abnormality. Fluid in the right maxillary sinus which may represent acute sinusitis in the appropriate clinical setting. A preliminary report was provided by [employer].
[2017-11-07] MEDS ORDERED: Lidocaine 5% Patch TD SCH (10:00)
== END 2017-11-06 19:55 | disposition home or self-care (01) ==
LOC: C.ER 17:40
DX: S09.90XA Unspecified injury of head, initial encounter (principal); W18.2XXA Fall in (into) shower or empty bathtub, initial encounter; Y93.E1 Activity, personal bathing and showering; Y92.002 Bathroom of unspecified non-institutional (private) residence as the place of occurrence of the external cause; N39.0 Urinary tract infection, site not specified

== ENCOUNTER 2018-01-23 18:39 | Emergency (ER) | payer SELFPAY ==
[2018-01-23 18:40] VITALS: BMI 38.8
[2018-01-23 18:52] VITALS: TEMP 98.2
[2018-01-23] MEDS ORDERED: Sodium Chloride 0.9% 1,000 ML IV ONE (19:18)
--- NOTE | 2018-01-23 19:18 | C.PDOC ---
History Of Present Illness The patient, whose past medical history includes asthma, presents to the ED for evaluation of shortness of breath and diffuse body aches which began around 2 days ago. Patient states she quit smoking around 2 weeks ago. She denies fever, chills. Time Seen by Provider: 01/23/18 19:17 Chief Complaint (Nursing): Shortness Of Breath History Per: Patient History/Exam Limitations: no limitations Onset/Duration Of Symptoms: Days (2) Current Symptoms Are (Timing): Still Present Quality: Aching Current Respiratory Medications: See Home Med List Severity: Mild Pain Scale Rating Of: 2 Associated Symptoms: denies: Fever, Chills Reports Recently: Seen In ED, Treated By A Physician Recent travel outside of the [place]: No Additional History Per: Patient Past Medical History Reviewed: Historical Data, Nursing Documentation, Vital Signs Vital Signs: Last Vital Signs Temp 98.2 F 01/23/18 18:48 Pulse 89 01/23/18 18:48 Resp 20 01/23/18 18:48 BP 109/74 01/23/18 18:48 Pulse Ox 98 01/23/18 18:48 - Medical History PMH: Arthritis (Rheumatoid), Asthma, Back Problems (chronic lower back pain ), COPD, Diabetes, HTN, Hypercholesterolemia, Hyperthyroidism, Hypothyroidism, Kidney Stones, Migraine, Chronic Kidney Disease, Rheumatoid Arthritis, Seizures, TIA (2010), Chronic Pain (Arthritis) Surgical History: No Surg Hx Family History: States: Unknown Family Hx - Social History Hx Tobacco Use: Yes (quit smoking two weeks ago ) Hx Alcohol Use: No Hx Substance Use: No - Immunization History Hx Tetanus Toxoid Vaccination: Yes Hx Influenza Vaccination: Yes Hx Pneumococcal Vaccination: Yes (12/2014) Review Of Systems Constitutional: Negative for: Fever, Chills Cardiovascular: Negative for: Chest Pain, Palpitations Respiratory: Positive for: Shortness of Breath. Negative for: Cough Gastrointestinal: Negative for: Nausea, Vomiting, Abdominal Pain Musculoskeletal: Positive for: Other (diffuse body aches ) Skin: Negative for: Rash, Lesions, Jaundice, Bruising Neurological: Negative for: Weakness, Numbness Physical Exam - Physical Exam Appears: Non-toxic, No Acute Distress, Other (morbidly obese ) Skin: Warm, Dry Head: Normacephalic Eye(s): bilateral: Normal Inspection Oral Mucosa: Moist Neck: Supple Chest: Symmetrical, No Deformity, No Tenderness Cardiovascular: Rhythm Regular, No Murmur Respiratory: Decreased Breath Sounds, No Rales, No Rhonchi, No Wheezing, Other (speaking in full sentences ) Gastrointestinal/Abdominal: Soft, No Tenderness Back: Normal Inspection Extremity: Normal ROM, Capillary Refill (less than 2 seconds ) Extremity: Bilateral: Atraumatic Neurological/Psych: Oriented x3 Gait: Steady ED Course And Treatment - Laboratory Results Result Diagrams: 01/23/18 19:39 01/23/18 19:39 ECG: Interpreted By Me, Viewed By Me ECG Rhythm: Sinus Rhythm (75), Nonspecific Changes O2 Sat by Pulse Oximetry: 98 Pulse Ox Interpretation: Normal Progress Note: Bloodwork, urinalysis, Flu swab, CXR, EKG ordered and reviewed. IV Fluids given. Reevaluation Time: 22:36 Reassessment Condition: Improved Disposition Counseled Patient/Family Regarding: Studies Performed, Diagnosis, Need For Fol lowup, Rx Given - Disposition Referrals: [facility] [Outside] [facility] [Outside] Disposition: HOME/ ROUTINE Disposition Time: 19:18 Condition: FAIR Additional Instructions: Please return if symptoms recur Prescriptions: Albuterol/Ipratropium [Duoneb 3 MG/3 Ml-0.5 MG/3 Ml 3 Ml] 1 ea IH QID #50 neb Prednisone [Deltasone] 20 mg PO DAILY #5 tablet Instructions: Asthma, Adult (DC) Forms: [facility] (Lithuanian) - Clinical Impression Clinical Impression: Dyspnea, Asthma exacerbation - Scribe Statement The provider has reviewed the documentation as recorded by the Scribe (Sarah Garrett) Provider Attestation: All medical record entries made by the Scribe were at my direction and personally dictated by me. I have reviewed the chart and agree that the record accurately reflects my personal performance of the history, physical exam, medical decision making, and the department course for this patient. I have also personally directed, reviewed, and agree with the discharge instructions and disposition.
[2018-01-23 19:52] LABS: BASO % 0.5 % (0.0-2.0); EOS # 0.2 K/uL (0.0-0.7); EOS % 2.6 % (0.0-4.0); HEMOGLOBIN 9.8 g/dL (11.0-16.0); LYMPH # 2.9 K/uL (1.0-4.3); LYMPH % 31.6 % (20.0-40.0); MEAN CORPUSCULAR HEMOGLOBIN 26.9 pg (27.0-31.0); MEAN CORPUSCULAR HGB CONC 32.8 g/dL (33.0-37.0); MEAN PLATELET VOLUME 8.2 fL (7.2-11.7); MONO # 0.6 K/uL (0.0-0.8); MONO % 6.1 % (0.0-10.0); NEUT # 5.4 K/uL (1.8-7.0); NEUT % 59.2 % (50.0-75.0); RBC 3.64 Mil/uL (3.80-5.20); RED CELL DISTRIBUTION WIDTH 16.8 % (11.5-14.5); WHITE BLOOD COUNT 9.1 K/uL (4.8-10.8)
[2018-01-23 19:58] LABS: VENOUS BLOOD GAS BASE EXCESS 5.6 mmol/L (0.0-2.0); VENOUS BLOOD GAS PCO2 45 mmHg (40-60); VENOUS BLOOD GAS PO2 44 mm/Hg (30-55); VENOUS BLOOD PH 7.44 (7.32-7.43)
[2018-01-23 20:01] LABS: ALB/GLOB RATIO 1.3 (1.0-2.1); ALBUMIN 4.2 g/dL (3.5-5.0); ALT/SGPT 37 U/L (9-52); AST/SGOT 34 U/L (14-36); BLOOD UREA NITROGEN 15 mg/dL (7-17); CALCIUM 9.1 mg/dl (8.6-10.4); GFR NON-AFRICAN AMERICAN 54
[2018-01-23 20:02] LABS: INR 1.1
[2018-01-23] MEDS ORDERED: Sodium Chloride 0.9% 1,000 ML ONE (20:12)
[2018-01-23 20:18] LABS: B-TYPE NATRIURETIC PEPTIDE 73.1 pg/mL (0-450)
[2018-01-23] MEDS ORDERED: Enoxaparin 40 mg Syringe SC STA (20:22)
[2018-01-23] MEDS ORDERED: Iodixanol 320 MG/ML 100 ML BOTTLE IV ONE (20:27)
[2018-01-23] MEDS ORDERED: Enoxaparin 40 mg Syringe ONE (20:41)
[2018-01-23] MEDS ORDERED: Enoxaparin 100 mg Syringe ONE (20:41)
[2018-01-23 21:53] VITALS: RESP 16
[2018-01-23 23:09] VITALS: BP 120/81; PULSE 66; O2SAT 97
--- NOTE | 2018-01-24 09:34 | RAD ---
Date of service: 01/23/2018 HISTORY: SOB COMPARISON: Chest radiograph 11/05/2016. FINDINGS: LUNGS: Diminished pulmonary volumes bilaterally. Right basilar patchy airspace disease appreciated in the interval. None definitively shown at the left. PLEURA: No significant pleural effusion identified, no pneumothorax apparent. CARDIOVASCULAR: No aortic atherosclerotic calcification present. Normal cardiac size. No pulmonary vascular congestion. OSSEOUS STRUCTURES: No significant abnormalities. VISUALIZED UPPER ABDOMEN: Normal. OTHER FINDINGS: None. IMPRESSION: Diminished history volume may be resulting in atelectasis the right base though early infiltrates not completely excluded. None is seen at the left. Clinically correlate further. Exam otherwise reflects diminished pulmonary volumes bilaterally.
--- NOTE | 2018-01-24 10:11 | CT ---
CT chest pulmonary angiogram HISTORY: Shortness of breath. Elevated D-dimer. Comparison: X-ray dated 01/23/2018 TECHNIQUE: CT chest pulmonary angiogram was performed utilizing multiple contiguous axial images with the use of intravenous contrast. Subsequently, sagittal and coronal reformatted images as well as sagittal and coronal MIPS reformatted images were obtained. This CT exam was performed using one or more of the following dose reduction techniques: Automated exposure control, adjustment of the mA and/or kV according to patient size, and/or use of iterative reconstruction technique. Findings: Right lung: Mild venous congestion. Mild dependent atelectasis. Left lung: Mild venous congestion. Mild dependent atelectasis. Trachea thru central airways are patent. Few shotty axillary lymph nodes; for example, a 1.4 centimeter lymph node is noted at the right axilla. 1 centimeter right hilar lymph node noted. No pleural or pericardial effusion. Nodular thickening the bilateral adrenal glands. Left adrenal nodule measures 1.6 centimeters demonstrating a Hounsfield unit attenuation 9, possibly an adenoma. This may be better delineated with a multiphasic CT scan. Small hiatal hernia. Degenerative changes in the spine. No evidence for acute central pulmonary embolism. More limited evaluation for segmental and subsegmental emboli given the motion and streak artifact at those levels. For example, questionable filling defects seen within a segmental branch of the right upper lobe pulmonary artery on series 2, image 88 as well as a segmental branch of the left lower lobe pulmonary artery on series 2, image 117 likely represents artifact. Consider correlation with repeat study and or V/Q scan if clinically indicated. Impression: 1. No evidence for acute central pulmonary embolism. More limited evaluation for segmental and subsegmental emboli given the motion and streak artifact at those levels. For example, questionable filling defects seen within a segmental branch of the right upper lobe pulmonary artery on series 2, image 88 as well as a segmental branch of the left lower lobe pulmonary artery on series 2, image 117 likely represents artifact. Consider correlation with repeat study and or V/Q scan if clinically indicated. 2. Mild venous congestion. 3. Few shotty axillary lymph nodes; for example, a 1.4 centimeter lymph node is noted at the right axilla. 1 centimeter right hilar lymph node noted. 4. Nodular thickening the bilateral adrenal glands. Left adrenal nodule measures 1.6 centimeters demonstrating a Hounsfield unit attenuation 9, possibly an adenoma. This may be better delineated with a multiphasic CT scan. 5. Small hiatal hernia. A preliminary report was generated at 10:18 p.m. on 01/23/[address] Freddie Guallpa from [employer].
--- NOTE | 2018-01-25 14:49 | CARD ---
APPROVED REPORT Date of service: 01/23/2018 EKG Measurement Heart [id number] <Conclusion> Normal sinus rhythm Nonspecific T wave abnormality Abnormal ECG
== END 2018-01-23 23:26 | disposition home or self-care (01) ==
LOC: C.ER 18:39
DX: J45.901 Unspecified asthma with (acute) exacerbation (principal); R06.00 Dyspnea, unspecified; E78.00 Pure hypercholesterolemia, unspecified; I12.9 Hypertensive chronic kidney disease with stage 1 through stage 4 chronic kidney disease, or unspecified chronic kidney disease; N18.9 Chronic kidney disease, unspecified; M06.9 Rheumatoid arthritis, unspecified; J44.9 Chronic obstructive pulmonary disease, unspecified; Z86.73 Personal history of transient ischemic attack (TIA), and cerebral infarction without residual deficits; Z87.891 Personal history of nicotine dependence
CPT/HCPCS: 71045; 71275; 80053; 82803; 83735; 83880; 84484; 85025; 85378; 85610; 85730; 87040; 87804; 93005; 96361; 96374; 96375; 99285; J1885; J2930; J7030; Q9967